=== PATIENT | female | born 2000 | race Two or more races ===

== ENCOUNTER 2024-12-31 16:52 | Emergency (ER) | payer MEDICAID, OTHER ==
[~2024-12-31] VITALS: Ht 149.9 cm; Wt 48.6 kg
--- NOTE | 2024-12-31 17:26 | ED.PDOC ---
GI ASSESSMENT HPI Comments This is a 24 year old female presenting to the ED with chief complaint of abdominal pain. Patient reports that she has been experiencing epigastric abdominal pain with associated nausea and vomiting for the past 2 days. Patient relays that she is currently 7 weeks . Patient states she is A1. Patient denies any hematemesis, fever, chills, dizziness, diarrhea, or vaginal bleeding. Chief Complaint: Abdominal Pain Time Seen by MD: 17:23 Reviewed Notes: Nurses Notes, Medications, Allergies Allergies: Coded Allergies: NO KNOWN ALLERGIES (Unverified , 12/31/24) Information Source: Patient Mode of Arrival: Ambulatory Timing: Days Duration: Since onset Prehospital treatment: None Quality: Aching Vomitus: Watery Stool: Normal Severity: Moderate Recent: None Recent Hx of: Current Pain Location: Epigastric Modifying Factors: Nothing Associated sign and symptoms: Nausea, Vomiting, Abdominal Pain Past Medical History PAST MEDICAL HISTORY: Denies Surgical History: Denies all surgeries SCIENCE TUTOR History: No Pertinent SCIENCE TUTOR History 3 Para 1 AB 1 Family History Family History: Reviewed,noncontributory to illness Social History Smoker: Non-Smoker Alcohol: Denies ETOH Use Drugs: Denies Drug Use Lives In: Home Constitutional: denies: chills, diaphoresis, fatigue, fever, malaise, sweats, weakness, others EENTM: denies: blurred vision, double vision, ear bleeding, ear discharge, ear drainage, ear pain, ear ringing, eye pain, eye redness, hearing loss, mouth pain, mouth swelling, nasal discharge, nose bleeding, nose congestion, nose pain, photophobia, tearing, throat pain, throat swelling, voice changes, others Respiratory: denies: cough, hemoptysis, orthopnea, SOB at rest, shortness of breath, SOB with excertion, stridor, wheezing, others Cardiovascular: denies: chest pain, dizzy spells, diaphoresis, Dyspnea on exertion, edema, irregular heart beat, left arm pain, lightheadedness, palpitations, PND, syncope, others Gastrointestinal: reports: abdominal pain, nausea, vomiting; denies: abdomen distended, blood streaked bowels, constipated, diarrhea, dysphagia, difficulty swallowing, hematemesis, melena, poor appetite, poor fluid intake, rectal bleeding, rectal pain, others Genitourinary: reports: ; denies: abnormal vagina bleeding, burning, dyspareunia, dysuria, flank pain, frequency, hematuria, incontinence, pain, vagina discharge, urgency, others Neurological: denies: dizziness, fainting, headache, left sided numbness, left sided weakness, numbness, paresthesia, pre-existing deficit, right sided numbness, right sided weakness, seizure, speech problems, tingling, tremors, weakness, others Musculoskeletal: denies: back pain, gout, joint pain, joint swelling, muscle pain, muscle stiffness, neck pain, others Integumetry: denies: bruises, change in color, change in hair/nails, dryness, laceration, lesions, lumps, rash, wounds, others Allergic/Immunocompromised: denies: Difficulty Healing, Frequent Infections, Hives, Itching, others Hematologic/Lymphatic: denies: anemia, blood clots, easy bleeding, easy bruising, swollen glands, others Endocrine: denies: excessive hunger, excessive sweating, excessive thirst, excessive urination, flushing, intolerance to cold, intolerance to heat, unexplained weight gain, unexplained weight loss, others Psychiatric: denies: anxiety, bipolar disorder, depression, hopeless, panic disorder, schizophrenia, sleepless, suicidal, others All Other Systems: Reviewed and Negative Physical Exam General Appearance: Mild Distress HEENT: Normal ENT Inspection, Pharynx Normal, TMs Normal Neck: Full Range of Motion, Non-Tender, Normal, Normal Inspection Respiratory: Chest Non-Tender, Lungs Clear, No Accessory Muscle Use, No Respiratory Distress, Normal Breath Sounds Cardiovascular: No Edema, No JVD, No Murmur, No Gallop, Normal Peripheral Pulses, Regular Rate/Rhythm Breast Exam: Deferred Gastrointestinal: No Organomegaly, Non Tender, No Pulsatile Mass, Normal Bowel Sounds, Soft Genitalia: Deferred Pelvic: Deferred Rectal: Deferred Extremities: No calf tenderness, Normal capillary refill, Normal inspection, Normal range of motion, Non-tender, No pedal edema Musculoskeletal : Apperance: Normal Neurologic: Alert, craft superintendent II-XII nml as Tested, No Motor Deficits, Normal Affect, Normal Mood, No Sensory Deficits Cerebellar Function: Normal Reflexes: Normal Skin: Dry, Normal Color, Warm Lymphatic: No Adenopathy Was a procedure done? Was a procedure done?: No GI differential Dx Differential Diagnosis: Gastritis/PUD, Gastroenteritis, Inflammatory BD, Pancreatitis, Electrolyte Imbalance, Food Poisoning X-Ray, Labs, Meds, VS Vital Signs Date Time Temp Pulse Resp B/P (MAP) Pulse Ox O2 Delivery O2 Flow Rate FiO2 12/31/24 19:28 95 17 99 Room Air 12/31/24 19:28 98.3 95 17 105/68 (80) 99 98.3 12/31/24 16:56 97.8 108 20 146/67 98 97.8 Lab Test 12/31/24 19:30 12/31/24 17:21 Range/Units Urine Color Yellow Yellow Urine Clarity Turbid H Clear Urine pH 5.5 5.0-9.0 Urine Specific Dane 1.034 1.001-1.035 Urine Protein 1+ H Negative Urine Ketones 4+ H Negative Urine Blood Negative Negative /uL Urine Nitrite Negative Negative Urine Bilirubin Negative Negative Urine Urobilinogen 3 H Negative mg/dL Urine Leukocyte Esterase Trace Negative /uL Urine RBC 2 0 - 4 /hpf Urine Microscopic WBC 12 H 0-5 /HPF Urine Squamous Epithelial Cells Mod <5 /hpf Urine Bacteria Few H None Seen /hpf Urine Mucus Few None Seen Urine Glucose Normal Normal mg/dL White Blood Count 7.3 4.4-10.8 10^3/uL Red Blood Count 4.97 4.0-5.20 10^6/uL Hemoglobin 14.4 12.2-16.2 g/dL Hematocrit 41.1 36.0-46.0 % Mean Corpuscular Volume 82.6 80.0-100.0 fL Mean Corpuscular Hemoglobin 29.0 28.0-32.0 pg Mean Corpuscular Hemoglobin Concent 35.1 32.0-36.0 g/dL Red Cell Distribution Width 13.2 11.8-14.3 % Platelet Count 266 140-450 10^3/uL Mean Platelet Volume 7.3 6.9-10.8 fL Neutrophils (%) (Auto) 77.7 37.0-80.0 % Lymphocytes (%) (Auto) 15.0 10.0-50.0 % Monocytes (%) (Auto) 6.7 0.0-12.0 % Eosinophils (%) (Auto) 0.2 0.0-7.0 % Basophils (%) (Auto) 0.4 0.0-2.0 % Neutrophils # (Auto) 5.7 1.6-8.6 10 ^3/uL Lymphocytes # (Auto) 1.1 0.4-5.4 10 ^3/uL Monocytes # (Auto) 0.5 0-1.3 10 ^3/uL Eosinophils # (Auto) 0 0-0.8 10 ^3/uL Basophils # (Auto) 0 0-0.2 10 ^3/uL Nucleated Red Blood Cells 0.0 % Sodium Level 137 136-145 mmol/L Potassium Level 3.9 3.5-5.1 mmol/L Chloride Level 102 98-107 mmol/L Carbon Dioxide Level 22 20-31 mmol/L Anion Gap 13 5-15 Blood Urea Nitrogen 7 L 9-23 mg/dL Creatinine 0.56 0.550-1.02 mg/dL Glomerular Filtration Rate Calc 131 >90 mL/min BUN/Creatinine Ratio 12.5 10.0-20.0 Serum Glucose 94 74-106 mg/dL Calcium Level 9.8 8.7-10.4 mg/dL Beta-Hydroxybutyric Acid 0.857 H < 0.4 mmol/L Beta HCG, Quantitative 678977.6 H 1.5-4.2 mIU/mL Current Medications Medications (Trade) Dose Ordered Sig/Manjula Route Start Time Stop Time Status Last Admin Metoclopramide HCl (Reglan Injection) 10 mg ONCE ONCE IV 12/31/24 17:15 12/31/24 17:16 DC 12/31/24 19:54 Pantoprazole Sodium (Protonix) 40 mg ONCE ONCE IV 12/31/24 17:15 12/31/24 17:16 DC 12/31/24 19:55 Sodium Chloride 1,000 ml @ 1,000 mls/hr Q1H ONCE IV 12/31/24 17:15 12/31/24 18:14 DC 12/31/24 19:28 The patient was given Reglan 10 mg IV push The patient was given Protonix 40 mg IV push The patient was given a 1 L bolus of normal saline The quantitative hCG is 118710 The CBC and chemistry panel is within normal limits The urine test is positive for UTI The patient is given a prescription of Reglan and Macrobid The patient will return to the emergency department's condition worsens. Images Reviewed?: Images reviewed and evaluated by me Time of 1ST Reevaluation: 20:54 Reevaluation 1ST: Unchanged Patient Education/Counseling: Diagnosis, Treatment, Prognosis, Need For Follow Up Family Education/Counseling: No Family Present SEPSIS Sepsis Screen Date sepsis recognized/suspect: Dec 31, 2024 Time Sepsis recognized/suspect: 1657 Recent Procedure: No On Antibiotic Therapy: No Respiratory Rate >20: No Heart Rate >90: Yes Temp<36 C (96.8 F) or >38.3 C: No SBP <90 or MAP <65 mmHG: No New Acute Mental Status Change: No Is the patient on CPAP, BIPAP,: No Physician Orders Ob Ultrasound Comp Less 14wks (12/31/24 17:13) Vital Signs Date Time Temp Pulse Resp B/P (MAP) Pulse Ox O2 Delivery O2 Flow Rate FiO2 12/31/24 19:28 95 17 99 Room Air 12/31/24 19:28 98.3 95 17 105/68 (80) 99 98.3 12/31/24 16:56 97.8 108 20 146/67 98 97.8 Laboratory Tests Test 12/31/24 17:21 White Blood Count 7.3 10^3/uL (4.4-10.8) Medications Medications Dose Ordered Sig/Manjula Route Start Time Stop Time Status Last Admin Dose Admin Metoclopramide HCl 10 mg ONCE ONCE IV 12/31/24 17:15 12/31/24 17:16 DC 12/31/24 19:54 Pantoprazole Sodium 40 mg ONCE ONCE IV 12/31/24 17:15 12/31/24 17:16 DC 12/31/24 19:55 Sodium Chloride 1,000 ml @ 1,000 mls/hr Q1H ONCE IV 12/31/24 17:15 12/31/24 18:14 DC 12/31/24 19:28 Departure 1 Departure Time of Disposition: 20:54 Impression: Primary Impression: Abdominal pain in Qualified Codes: O26.899 - Other specified related conditions, unspecified trimester; R10.9 - Unspecified abdominal pain Additional Impressions: Hyperemesis gravidarum UTI (urinary tract infection) Qualified Codes: N30.00 - Acute cystitis without hematuria Disposition: 01 HOME / SELF CARE / HOMELESS Condition: Fair Discharged With: Self Critical Care Note Critical Care Time?: No Stability Stability form required: No Heart Score Heart Score: Heart Score Response (Comments) Value History N/A 0 EKG N/A 0 Age N/A 0 Risk Factors N/A 0 Troponin N/A 0 Total 0 I personally scribed for FRANK LEE MD ([email or web address]) on 12/31/24 at 17:26. Electronically submitted by Ronnie Erickson ([email or web address]). FRANK LEE MD Dec 31, 2024 17:26
[2024-12-31 17:34] LABS: Hematocrit 41.1 % (36.0-46.0); Hemoglobin 14.4 g/dL (12.2-16.2); Mean Corpuscular Hemoglobin 29.0 pg (28.0-32.0); Mean Corpuscular Volume 82.6 fL (80.0-100.0); Nucleated Red Blood Cells % 0.0 %
[2024-12-31 17:49] LABS: Chloride 102 mmol/L (98-107); Potassium 3.9 mmol/L (3.5-5.1); Sodium 137 mmol/L (136-145)
[2024-12-31 17:50] LABS: Anion Gap 13 (5-15); Carbon Dioxide 22 mmol/L (20-31)
[2024-12-31 17:51] LABS: Calcium 9.8 mg/dL (8.7-10.4)
[2024-12-31 17:55] LABS: Glucose 94 mg/dL (74-106)
[2024-12-31 17:56] LABS: BUN/Creatinine Ratio 12.5 (10.0-20.0)
[2024-12-31 17:59] LABS: Blood Urea Nitrogen 7 mg/dL (9-23)
[2024-12-31 19:28] VITALS: BP 105/68; PULSE 95; RESP 17; TEMP 98.3; O2SAT 99
[2024-12-31] MEDS: SODIUM CHLORIDE 0.9% 1,000 ML IV ONE (19:28)
[2024-12-31] MEDS: METOCLOPRAMIDE HCL 5MG/ml INJ 2ml VIAL IV ONE (19:54)
[2024-12-31] MEDS: PANTOPRAZOLE 40 MG/10 ML VIAL INJ IV ONE (19:55)
--- NOTE | 2024-12-31 19:59 | DVH ---
INDICATION: pain TECHNIQUE: Multiple real-time grayscale transabdominal sonographic images along with color and duplex Doppler of the uterus and ovaries were obtained. COMPARISON: None FINDINGS: The uterus measures 9.8 x 7.3 x 8.3 cm. Gestational sac noted in the endometrial canal. The right ovary measures 3.5 x 1.8 x 2.8 cm. Volume of the right ovary is 8 cc. There is a 1.8 x 1.2 x 1.5 cm anechoic lesion in the right ovary consistent with a corpus luteal cyst. The left ovary not visualized Subsequent color and duplex Doppler interrogation of the right ovary demonstrated symmetric vascular flow to both ovaries, though this does not exclude the possibility of torsion due to the dual blood s upply. There is a gestational sac in the endometrial canal measuring 3.55 cm consistent with 8 weeks 5 days. Yolk sac is visualized. [place]-rump length measures 2.76 cm consistent with 9 weeks 4 days. Average gestational age is 9 weeks 1 day SOILA 4 08/31/2025. heart rate 171 beats per minute IMPRESSION: 1. Single live intrauterine with average gestational age of 9 weeks 1 day SOILA 2. Corpus luteal cyst in the right ovary. 3. Left ovary not visualized. 4. heart rate 171 beats per minute. 5. Questionable small subchorionic bleed. Measures 2.3 x 1 x 1.4 cm
[2024-12-31 20:06] LABS: Urine Protein, UAD 1+ (Negative)
[2024-12-31] MEDS ORDERED: NITR-87 PO (20:57)
[2025-01-10] MEDS ORDERED: PANT40T PO (11:48)
[2025-01-10] MEDS ORDERED: ZOFR4T PO (11:48)
[2025-01-10] MEDS ORDERED: CEPH500C PO (11:48)
== END 2024-12-31 21:11 | disposition home or self-care (01) ==
LOC: ER 16:52
DX: O21.0 Mild hyperemesis gravidarum (principal); O00.80 Other ectopic pregnancy without intrauterine pregnancy; O23.41 Unspecified infection of urinary tract in pregnancy, first trimester; N39.0 Urinary tract infection, site not specified; Z3A.09 9 weeks gestation of pregnancy
CPT/HCPCS: 36415; 76801; 80048; 81001; 82010; 84702; 85025; 96361; 96374; 96375; 99285; J2470; J2765; J7030

== ENCOUNTER 2025-01-07 21:29 | Inpatient (IN) | payer MEDICAID ==
[~2025-01-07] VITALS: Ht 149.9 cm; Wt 50.7 kg
[~2025-01-07 21:29] MED LIST: NITR-87 PO
--- NOTE | 2025-01-07 22:30 | ED.PDOC ---
SEED ANALYSIS LABORATORY ASSISTANT HPI Comments 24-year-old female who came to ER due to nausea and vomiting. Patient is a , approximately 10 weeks . For the past 2 days, patient has been unable to tolerate any oral intake, bouts of nausea and vomiting, associated with chest discomfort, shortness a breath, back pains, and palpitations. Denies any vaginal bleeding. REVIEW OF SYSTEMS: General: No fever, no chills, or fatigue HEENT: No sore throat, no earache, no congestion, no neck pain. Cardiac: (+) chest pain. No palpitations. Lungs: (+) shortness of breath, no cough. GI: (+) nausea, (+) vomiting, no diarrhea, no constipation, no abdominal pain : No dysuria, frequency, or urgency. No hematuria. Musculoskeletal: No joint pain , no joint swelling, no extremity edema. Skin: No rash, no itching. Neuro: No headache, no dizziness, no weakness EXAM: General: Awake, alert and oriented. No acute distress. Skin: Skin in warm, dry and intact. Appropriate color for ethnicity. HEENT: The head is normocephalic and atraumatic. Conjunctivae are clear without exudates or hemorrhage. Sclera is non-icteric. EOM are intact. No signs of nystagmus. Eyelids are normal in appearance without swelling or lesions. Oral mucosa is pink and moist Neck: The neck is supple with normal range of motion. No JVD. Cardiac: Heart rate and rhythm are normal. No murmurs, gallops, or rubs are auscultated. Respiratory: No signs of respiratory distress. Lung sounds are clear in all lobes bilaterally without rales, rhonchi, or wheezes. Abdominal: Abdomen is soft, positive epigastric-tenderness without distention. Bowel sounds are present and normoactive in all four quadrants. Extremities: Upper and lower extremities are atraumatic in appearance without deformity or edema. Neurological: The patient is awake, alert and oriented to person, place, and time with normal speech. Speech is clear. There is no facial asymmetry. Psychiatric: Appropriate mood and affect. 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 Was a procedure done?: No Differential Diagnosis (SWING FRAME GRINDER OPERATOR) Vaginal Bleeding: - Threatened, UTI, Other (Hyperemesis gravidarum) Vaginal Discharge: , UTI, Other (Pancreatitis, cholecystitis, pneumonia, acute coronary syndrome, pulmonary embolism, hyperemesis gravidarum, urinary tract infection, electrolyte imbalance, thyroid disorder, other) X-Ray, Labs, Meds, VS Vital Signs Date Time Temp Pulse Resp B/P (MAP) Pulse Ox O2 Delivery O2 Flow Rate FiO2 01/08/25 01:58 98.8 91 20 125/70 (88) 98 98.8 01/08/25 01:37 87 01/08/25 00:39 83 01/07/25 21:32 98.5 133 16 139/81 95 98.5 Lab Test 01/07/25 22:36 Range/Units White Blood Count 9.3 4.4-10.8 10^3/uL Red Blood Count 5.24 H 4.0-5.20 10^6/uL Hemoglobin 15.1 12.2-16.2 g/dL Hematocrit 43.4 36.0-46.0 % Mean Corpuscular Volume 82.9 80.0-100.0 fL Mean Corpuscular Hemoglobin 28.9 28.0-32.0 pg Mean Corpuscular Hemoglobin Concent 34.9 32.0-36.0 g/dL Red Cell Distribution Width 13.3 11.8-14.3 % Platelet Count 283 140-450 10^3/uL Mean Platelet Volume 7.4 6.9-10.8 fL Neutrophils (%) (Auto) 87.6 H 37.0-80.0 % Lymphocytes (%) (Auto) 8.0 L 10.0-50.0 % Monocytes (%) (Auto) 4.0 0.0-12.0 % Eosinophils (%) (Auto) 0.1 0.0-7.0 % Basophils (%) (Auto) 0.3 0.0-2.0 % Neutrophils # (Auto) 8.2 1.6-8.6 10 ^3/uL Lymphocytes # (Auto) 0.7 0.4-5.4 10 ^3/uL Monocytes # (Auto) 0.4 0-1.3 10 ^3/uL Eosinophils # (Auto) 0 0-0.8 10 ^3/uL Basophils # (Auto) 0 0-0.2 10 ^3/uL Nucleated Red Blood Cells 0.0 % Sodium Level 137 136-145 mmol/L Potassium Level 3.9 3.5-5.1 mmol/L Chloride Level 104 98-107 mmol/L Carbon Dioxide Level 19 L 20-31 mmol/L Anion Gap 14 5-15 Blood Urea Nitrogen 8 L 9-23 mg/dL Creatinine 0.61 0.550-1.02 mg/dL Glomerular Filtration Rate Calc 128 >90 mL/min BUN/Creatinine Ratio 13.1 10.0-20.0 Serum Glucose 96 74-106 mg/dL Calcium Level 10.1 8.7-10.4 mg/dL Troponin I High Sensitivity < 3 L </=34 ng/L Lipase 53 12-53 U/L Beta HCG, Quantitative 62731.4 H 1.5-4.2 mIU/mL Current Medications Medications (Trade) Dose Ordered Sig/Manjula Route Start Time Stop Time Status Last Admin Pyridoxine HCl (Vitamin B-6 Tablet) 50 mg ONCE ONCE PO 01/07/25 22:30 01/07/25 22:31 DC 01/08/25 00:57 Sodium Chloride 1,000 ml @ 1,000 mls/hr Q1H ONCE IV 01/07/25 22:30 01/07/25 23:29 DC 01/08/25 00:53 Acetaminophen (Tylenol Tablet Or Capsule) 1,000 mg ONCE ONCE PO 01/08/25 00:45 01/08/25 00:46 DC 01/08/25 00:58 Ondansetron HCl (Zofran) 4 mg ONCE ONCE IV 01/08/25 02:45 01/08/25 02:46 DC 01/08/25 03:43 OB ULTRASOUND <14 WEEKS: HISTORY: Abdominal pain, TECHNIQUE: Multiple real-time grayscale sonographic images of the pelvis with duplex doppler color flow, spectral and M-mode analysis. COMPARISON: US OB ULTRASOUND COMP LESS 14WKS on DOS: 12/31/24 FINDINGS: The uterus measures 10.5 X 8.6 X 7.7 cm The cervix is unremarkable. Right ovary measures 3.2 X 1.7 X 2.1 cm with normal Doppler color flow. Left ovary measures 4.0 X 1.9 X 2.5 cm with normal Doppler color flow. IUP single fetus at 10 weeks 0 days average ultrasound age based on mean crown- rump length of 3.56 cm and gestational sac size of 4.12 cm heart rate detected at 165 beats per minute. Yolk sac remarkable. Amniotic fluid within normal limits Mervat-gestational space: No subchronic hemorrhage IMPRESSION: IUP single fetus 10 weeks 0 days AUA corresponding to an SOILA of 03/24/2024. No acute abnormality detected. Time of 1ST Reevaluation: 22:22 Reevaluation 1ST: Unchanged Patient Education/Counseling: Need For Follow Up Family Education/Counseling: Need For Follow Up Departure 1 Departure Time of Disposition: 02:44 Impression: Primary Impression: Nausea and vomiting during Additional Impression: Chest pain Disposition: ADMITTED INPATIENT Condition: Stable Comments 24-year-old female ongoing nausea and vomiting and continued chest pain. Patient admitted to hospitalist service for further treatment, evaluation and monitoring. Extensive evaluation was performed in attempt to identify or rule out: (See dif ferential diagnosis section) The following tests were ordered, and results were reviewed by me and discussed with patient: (See diagnostic results section) The following test were independently interpreted by me: EKG Decision regarding hospitalization or escalation of hospital level of care: Risk and benefits of admission for further treatment of patient's condition was considered. Due to patient's current clinical condition, high risk of decline and poor outcome if discharged and need for further inpatient management and monitoring, patient will be admitted to the hospital. Discussed with patient. Critical Care Note Critical Care Time?: No Stability Stability form required: No Heart Score Heart Score: Heart Score Response (Comments) Value History N/A 0 EKG N/A 0 Age N/A 0 Risk Factors N/A 0 Troponin N/A 0 Total 0 I personally scribed for NIKOLAY GRIFFITH MD ([email or web address]) on 01/07/25 at 22:30. Electronically submitted by Paulo Wilson ([facility] I personally scribed for NIKOLAY GRIFFITH MD ([email or web address]) on 01/07/25 at 23:37. Electronically submitted by Paulo Wilson ([email or web address] I personally scribed for NIKOLAY GRIFFITH MD ([email or web address]) on 01/08/25 at 02:50. Electronically submitted by Paulo Wilson ([facility] NIKOLAY GRIFFITH MD Jan 07, 2025 22:30
[2025-01-07 22:46] LABS: Hematocrit 43.4 % (36.0-46.0); Hemoglobin 15.1 g/dL (12.2-16.2); Mean Corpuscular Hemoglobin 28.9 pg (28.0-32.0); Mean Corpuscular Volume 82.9 fL (80.0-100.0); Nucleated Red Blood Cells % 0.0 %
[2025-01-07 22:56] LABS: Anion Gap 14 (5-15); Chloride 104 mmol/L (98-107); Potassium 3.9 mmol/L (3.5-5.1); Sodium 137 mmol/L (136-145)
[2025-01-07 22:57] LABS: Calcium 10.1 mg/dL (8.7-10.4)
[2025-01-07 23:02] LABS: BUN/Creatinine Ratio 13.1 (10.0-20.0); Glucose 96 mg/dL (74-106); Lipase 53 U/L (12-53)
[2025-01-07 23:09] LABS: Blood Urea Nitrogen 8 mg/dL (9-23); Carbon Dioxide 19 mmol/L (20-31)
--- NOTE | 2025-01-07 23:19 | DVH ---
OB ULTRASOUND <14 WEEKS: HISTORY: Abdominal pain, TECHNIQUE: Multiple real-time grayscale sonographic images of the pelvis with duplex doppler color fl ow, spectral and M-mode analysis. COMPARISON: US OB ULTRASOUND COMP LESS 14WKS on DOS: 12/31/24 FINDINGS: The uterus measures 10.5 X 8.6 X 7.7 cm The cervix is unremarkable. Right ovary measures 3.2 X 1.7 X 2.1 cm with normal Doppler color flow. Left ovary measures 4.0 X 1.9 X 2.5 cm with normal Doppler color flow. IUP single fetus at 10 weeks 0 days average ultrasound age based on mean crown-rump length of 3.56 c m and gestational sac size of 4.12 cm heart rate detected at 165 beats per minute. Yolk sac remarkable. Amniotic fluid within normal limits Mervat-gestational space: No subchronic hemorrhage IMPRESSION: IUP single fetus 10 weeks 0 days AUA corresponding to an SOILA of 03/24/2024. No acute abnormality detected.
[2025-01-08] VITALS (10 sets, daily range): BP systolic 101–171; BP diastolic 56–87; PULSE 58–90; RESP 14–19; TEMP 97.3–98.4; O2SAT 93–99
--- NOTE | 2025-01-08 00:48 | ECG ---
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
[2025-01-08] MEDS: SODIUM CHLORIDE 0.9% 1,000 ML IV ONE ×2 (00:53→03:43)
[2025-01-08] MEDS: PYRIDOXINE HCL 50 MG TAB PO ONE (00:57)
[2025-01-08] MEDS: ACETAMINOPHEN 500 MG TAB or CAP PO ONE (00:58)
--- NOTE | 2025-01-08 03:26 | DVHHPRES ---
History of Present Illness Resident Creating Document: HUONG LOMAS History of Present Illness Marya Balderas is a 24-year-old female patient who presents to the ED with chief complaint of dyspnea and retrosternal pressure-like chest pain, associated with chills which started approximately 48 hours before her admission. Patient says that these symptoms were triggered only while she presents nonbloody emesis. She also describes chest pain that worsens with deep breaths and with superficial palpation. Patient is 10 weeks , has been experiencing unintentional weight loss and she believes is probably secondary to incoherent possible vomiting and reduced appetite (she went from 117 lb 204 lb in four weeks). She also complains of migraine and palpitation during these episodes. Due to progressive worsening of symptoms, patient decides to visit ER for further evaluation. Denies any other associated symptoms. 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 Normal cycles. Dr. Moon is her communications operator doctor Surgical history: Denies Family history: Grandmother had breast cancer Social history: Lives in [place] with family (next of kin is boyfriend). She occasionally smokes marijuana, but has not been smoking since patient has be en . Denies current tobacco, alcohol and other drug abuse Allergies: Denies Home medication: Tylenol Patient seen and examined at bedside. Currently still not tolerating oral diet (she could not take Tylenol or vitamin supplementation). Patient will be admitted for further management. Past Medical History Per HPI Past Surgical History Per HPI Family History Per HPI Past Social History Per HPI Review of Systems Review of Systems Per HPI Allergies: Coded Allergies: NO KNOWN ALLERGIES (Unverified , 12/31/24) Exam Vital Signs Vital Signs Date Time Temp Pulse Resp B/P (MAP) Pulse Ox O2 Delivery O2 Flow Rate FiO2 01/08/25 01:58 98.8 91 20 125/70 (88) 98 98.8 Exam Patient lying in bed, in no acute distress General: Lucid, afebrile, mucosae are moist Cardiovascular: Normal S1 and S2. No murmurs, gallops or rubs Respiratory: Normal ventilation mechanics. Clear lung sounds on auscultation Abdomen: Soft, mild tenderness on deep palpation right upper quadrant, rest of abdomen nontender, no organomegaly, normal bowel sounds MSK/skin: Mobilizes 4 limbs. Skin is dry and warm Neurological: Oriented in 3 spheres. No motor no sensitive deficits. Pupils are isocoric and reactive Labs/Xrays Labs Test 01/08/25 02:55 01/07/25 22:36 Range/Units White Blood Count 9.3 4.4-10.8 10^3/uL Red Blood Count 5.24 H 4.0-5.20 10^6/uL Hemoglobin 15.1 12.2-16.2 g/dL Hematocrit 43.4 36.0-46.0 % Mean Corpuscular Volume 82.9 80.0-100.0 fL Mean Corpuscular Hemoglobin 28.9 28.0-32.0 pg Mean Corpuscular Hemoglobin Concent 34.9 32.0-36.0 g/dL Red Cell Distribution Width 13.3 11.8-14.3 % Platelet Count 283 140-450 10^3/uL Mean Platelet Volume 7.4 6.9-10.8 fL Neutrophils (%) (Auto) 87.6 H 37.0-80.0 % Lymphocytes (%) (Auto) 8.0 L 10.0-50.0 % Monocytes (%) (Auto) 4.0 0.0-12.0 % Eosinophils (%) (Auto) 0.1 0.0-7.0 % Basophils (%) (Auto) 0.3 0.0-2.0 % Neutrophils # (Auto) 8.2 1.6-8.6 10 ^3/uL Lymphocytes # (Auto) 0.7 0.4-5.4 10 ^3/uL Monocytes # (Auto) 0.4 0-1.3 10 ^3/uL Eosinophils # (Auto) 0 0-0.8 10 ^3/uL Basophils # (Auto) 0 0-0.2 10 ^3/uL Nucleated Red Blood Cells 0.0 % Sodium Level 137 136-145 mmol/L Potassium Level 3.9 3.5-5.1 mmol/L Chloride Level 104 98-107 mmol/L Carbon Dioxide Level 19 L 20-31 mmol/L Anion Gap 14 5-15 Blood Urea Nitrogen 8 L 9-23 mg/dL Creatinine 0.61 0.550-1.02 mg/dL Glomerular Filtration Rate Calc 128 >90 mL/min BUN/Creatinine Ratio 13.1 10.0-20.0 Serum Glucose 96 74-106 mg/dL Calcium Level 10.1 8.7-10.4 mg/dL Lipase 53 12-53 U/L Beta HCG, Quantitative 48797.4 H 1.5-4.2 mIU/mL SEPSIS Sepsis Screen Date sepsis recognized/suspect: Jan 07, 2025 Time Sepsis recognized/suspect: 2134 Recent Procedure: No On Antibiotic Therapy: No Respiratory Rate >20: No Heart Rate >90: Yes Temp<36 C (96.8 F) or >38.3 C: No SBP <90 or MAP <65 mmHG: No New Acute Mental Status Change: No Is the patient on CPAP, BIPAP,: No Physician Orders Ob Ultrasound Comp Less 14wks (01/07/25 22:28) Electrocardigram (01/08/25 01:46) Electrocardigram (01/08/25 03:46) Troponin-I Hs (01/08/25 02:46) Urinalysis (01/08/25 02:46) Admit (01/08/25 02:52) Code Status (01/08/25 02:52) Ondansetron Hcl (Zofran) (01/08/25 03:00) Npo (Nothing By Mouth) Diet (01/08/25 Breakfast) Echo 2d Mode Cardiac Dop (01/08/25 02:52) Oxygen By Nasal Cannula (01/08/25 02:52) Stat Ekg For Chest Pain (01/08/25 02:52) Notify Md Of Changes From Base (01/08/25 02:52) Digital Media Representative For 24 Hours (01/08/25 02:52) Emergency Dysrhythmia Protocol (01/08/25 02:52) Rhythm Strips Once Every Shift (01/08/25 02:52) Sodium Chloride 0.9% (01/08/25 03:00) Pyridoxine Hcl Tablet (Vitamin B-6 Table (01/08/25 10:00) NS (01/08/25 03:00) Vital Signs Date Time Temp Pulse Resp B/P (MAP) Pulse Ox O2 Delivery O2 Flow Rate FiO2 01/08/25 01:58 98.8 91 20 125/70 (88) 98 98.8 01/08/25 01:37 87 01/08/25 00:39 83 01/07/25 21:32 98.5 133 16 139/81 95 98.5 Laboratory Tests Test 01/07/25 22:36 White Blood Count 9.3 10^3/uL (4.4-10.8) Medications Medications Dose Ordered Sig/Manjula Route Start Time Stop Time Status Last Admin Dose Admin Acetaminophen 1,000 mg ONCE ONCE PO 01/08/25 00:45 01/08/25 00:46 DC 01/08/25 00:58 1,000 MG Pyridoxine HCl 50 mg ONCE ONCE PO 01/07/25 22:30 01/07/25 22:31 DC 01/08/25 00:57 50 MG Sodium Chloride 1,000 ml @ 1,000 mls/hr Q1H ONCE IV 01/07/25 22:30 01/07/25 23:29 DC 01/08/25 00:53 1,000 MLS/HR Assessment/Plan Assessment/Plan Hyperemesis gravidarum Intrauterine (10 weeks of gestation) Dehydration Completed pelvic ultrasound which shows intrauterine of a single fetus is approximately 10 weeks of gestation. No acute abnormalities detected Patient currently is NPO Indicated IV fluids Avoid teratogenic medication and radiation Monitor electrolyte alteration. Ordered magnesium and phosphorus (pending) Rule out cholecystitis/appendicitis Ordered complete abdomen ultrasound Probable Costochondritis Completed EKG which showed sinus tachycardia with no ST-elevation. Troponins x2 negative. Chest pain is noncardiac (reproduces with palpation and worsens with breathing) Ordered echocardiogram to evaluate LV function and to rule out RV strain Recommend Tylenol once patient tolerates oral intake Goals of care discussed with patient for over18 minutes: Full code status Discussed case with Dr. Luz, patient and nurses: Patient was admitted to telemetry due to incoercible emesis with unintentional weight loss of13 lb in the past four weeks during . Patient is kept NPO and was given IV fluids. We will advance diet as tolerated. Ordered abdominal ultrasound to rule out acute causes of nausea and vomiting (cholecystitis and appendicitis). Plan discussed with: Patient, Other (Nurses) My Orders Orders - HUONG LOMAS RESIDENT Procedure Category Date Status Time Admit ADMIT 01/08/25 Transmitted 02:52 Code Status CODE 01/08/25 Transmitted 02:52 Ondansetron Hcl PHA 01/08/25 Logged (Zofran) 03:00 Npo (Nothing By DIET 01/08/25 Transmitted Mouth) Diet Breakfast Echo 2d Mode Cardiac US 01/08/25 Logged DOP 02:52 Oxygen By Nasal RT 01/08/25 Transmitted Cannula 02:52 Stat Ekg For Chest [facility] 01/08/25 In Process Pain 02:52 Notify Of Changes [facility] 01/08/25 In Process From Base 02:52 Digital Media Representative For [facility] 01/08/25 In Process 24 Hours 02:52 Emergency Dysrhythmia [facility] 01/08/25 In Process Protocol 02:52 Rhythm Strips Once [facility] 01/08/25 In Process Every Shift 02:52 Sodium Chloride 0.9% [facility] 01/08/25 Logged 03:00 Pyridoxine Hcl Tablet [facility] 01/08/25 Logged (Vitamin B-6 Table 10:00 NS [facility] 01/08/25 Verified 03:00 Date of Service: Jan 08, 2025 Billing Provider: KENNETH CARLOS MD Common Visit Codes: [id number] INP/OBS CARE (HIGH) Secondary Visit Codes: [id number] CARE PLAN 30 MINUTES HUONG LOMAS RESIDENT Jan 08, 2025 03:26
--- NOTE | 2025-01-08 03:31 | ECG ---
[facility] Test Date: 2025-01-08 Test Time: 01:34:54 Pat Name: KATHIE SENA Department: Room: 0280T Gender: F Nutritional Assistant: LINDA : 2000 Requested By: NIKOLAY GRIFFITH Order Number: [id number] Reading MD: Jaime Fernandez Measurements Intervals [place] Rate: 87 P: 63 OK: 131 QRS: 94 QRSD: 84 T: 60 QT: 345 QTc: 415 Interpretive Statements Sinus rhythm Borderline right axis deviation Minimal ST depression, inferior leads Electronically Signed On 01-13-2025 21:55:38 PDT by Jaime Fernandez Please click the below link to view image of tracing.
[2025-01-08] MEDS: ONDANSETRON HCL 4 MG/2 ML VIAL IV ONE (03:43)
--- NOTE | 2025-01-08 04:42 | ECG ---
[facility] Test Date: 2025-01-08 Test Time: 03:36:03 Pat Name: KATHIE SENA Department: Room: 0280T Gender: F Supervisor Cooler Service: DIEUDONNE : 2000 Requested By: NIKOLAY GRIFFITH Order Number: [id number] Reading MD: Jaime Fernandez Measurements Intervals [place] Rate: 80 P: 0 MN: 122 QRS: 91 QRSD: 80 T: 68 QT: 355 QTc: 410 Interpretive Statements Sinus rhythm Borderline right axis deviation Electronically Signed On 01-13-2025 21:57:01 PDT by Jaime Fernandez Please click the below link to view image of tracing.
[2025-01-08 05:03] LABS: Hematocrit 37.3 % (36.0-46.0); Hemoglobin 13.1 g/dL (12.2-16.2); Mean Corpuscular Hemoglobin 29.4 pg (28.0-32.0); Mean Corpuscular Volume 84.0 fL (80.0-100.0); Nucleated Red Blood Cells % 0.0 %
[2025-01-08] MEDS: SODIUM CHLORIDE 0.9% 1,000 ML IV SCH (05:10)
[2025-01-08 05:28] LABS: Albumin 4.2 g/dL (3.2-4.8); Alkaline Phosphatase 55 U/L (46-116); Anion Gap 14 (5-15); BUN/Creatinine Ratio 18.2 (10.0-20.0); Glucose 83 mg/dL (74-106); Magnesium 1.8 mg/dL (1.6-2.6); Potassium 4.2 mmol/L (3.5-5.1); Sodium 140 mmol/L (136-145); Total Protein 6.6 g/dL (5.7-8.2); Triglycerides 76 mg/dL (< 150)
[2025-01-08 05:29] LABS: Bilirubin, Total 1.1 mg/dL (0.2-1.0); Cholesterol 137 mg/dL (< 200); HDL Cholesterol 46 mg/dL (40-59)
[2025-01-08 05:31] LABS: Alanine Aminotransferase 77 U/L (7-40); Blood Urea Nitrogen 8 mg/dL (9-23); Calcium 8.2 mg/dL (8.7-10.4); Carbon Dioxide 17 mmol/L (20-31); Chloride 109 mmol/L (98-107)
[2025-01-08] MEDS: FAMOTIDINE (10MG/ML) 2ML VL IV ONE (05:45)
[2025-01-08 08:31] LABS: Urine Protein, UAD Negative (Negative)
[2025-01-08 08:35] LABS: Cannabinoid Screen, Urine Neg (NEGATIVE)
[2025-01-08 08:36] LABS: Amphetamine Screen, Urine Neg (NEGATIVE); Barbiturate Scree,Urine Neg (NEGATIVE); Benzodiazephine Screen, Urine Neg (NEGATIVE); Cocaine Screen, Urine Neg (NEGATIVE); Opiate Scree,Urine Neg (NEGATIVE); Phencyclidine Screen, Urine Neg (NEGATIVE)
[2025-01-08] MEDS: PYRIDOXINE HCL 50 MG TAB PO SCH (10:50)
--- NOTE | 2025-01-08 10:56 | DVH ---
Right lower quadrant ultrasound INDICATION: R/O APPENDICITIS Technique: 2-D real-time ultrasound was performed with axial and sagittal images submitted for evalu ation with graded compression. FINDINGS: Tubular structure in the right lower quadrant is 13.5 cm in length and is slightly ole sible. Increased vascular flow is seen along the periphery of this structure. Patient stated there is slight localized tenderness over this region with transducer pressure IMPRESSION: 1. Findings suspicious for mild or early acute appendicitis. Follow-up with contrast CT recommended t o confirm diagnosis
--- NOTE | 2025-01-08 11:12 | DVH ---
Ultrasound abdomen INDICATION: Questionable cholecystitis Technique: 2-D real-time ultrasound was performed with axial and sagittal images submitted for evalu ation. FINDINGS:Liver and spleen are normal in size without focal mass. No gallstones. There may be some sl udge in the gallbladder. There is slight gallbladder wall thickening. Negative sonographic bautista rep orted. No biliary dilatation. Common duct measures 4 mm. Kidneys are normal in size without mass ston e or hydronephrosis. Limited visualization of the pancreas due to overlying bowel gas. No free fluid. No abnormalities of the aorta or inferior vena cava.. IMPRESSION: 1. Slight thickening of the gallbladder wall. Whether this is due to acalculous cholecystitis or hyp oalbuminemia is uncertain. May consider nuclear medicine HIDA scan
[2025-01-08] MEDS: ONDANSETRON HCL 4 MG/2 ML VIAL IV PRN (12:48)
--- NOTE | 2025-01-08 12:57 | DVHSR ---
APPROVED REPORT EXAM: Two-dimensional and M-mode echocardiogram with Doppler and color Doppler. Blood Pressure: 101/56 mmHg INDICATION Chest Pain RISK FACTORS Height: 4'11", Weight: 100 DIMENSIONS LVDd4.3 (3.8-5.7cm)LA (2D)3.3 (1.9-4.0cm)Aortic Root2.6 (2.0-3.7cm) LVDs2.8 (2.5-4.0cm)LA (MM) (1.9-4.0cm)Aortic Cusp Exc1.9 (1.5-2.0cm) EF (%) 60.0 (55-70%)Rt. Atrium3.0 (1.9-4.0cm)Asc. Aorta cm IVSd0.7 (0.7-1.1cm)RV (D)3.0 (1.8-2.4cm) PWd0.6 (0.7-1.1cm) Mitral Valve MitralMitral Stenosis E wave0.99m/sMV Mean GR.mmHg A wave0.50m/sMV Peak GR.mmHg E/A ratio2.02D MVAcm2 DECEL [id number] 1/2 Tim[place] Aortic Valve Aortic ValveAortic Stenosis V10.89m/Gale Mean GR.3mmHg V21.25m/Gale Peak GR.6mmHg LVOT Diameter1.9 (1.8-2.4cm)Doppler AVA2.02cm2 Pulmonic Valve V20.87m/s Tricuspid Valve TR Velocity2.83m/s [id number] Conclusion lvef 65% normal rv function normal atria no severe valve abnormalities noted
--- NOTE | 2025-01-08 13:56 | DVHPN2 ---
Reviewed: Care Plan, H&P, Labs, Medications, Previous Orders, Radiology Changes from previous H/P or p: No Changes Objective Vitals Vital Signs Date Time Temp Pulse Resp B/P (MAP) Pulse Ox O2 Delivery O2 Flow Rate FiO2 01/08/25 12:38 97.3 58 16 115/59 (77) 93 97.3 01/08/25 08:00 Room Air* 0 21 Medications Current Medications Medications Dose Ordered Sig/Manjula Route Start Time Stop Time Status Last Admin Dose Admin Ondansetron HCl 4 mg Q4HP PRN IV 01/08/25 03:00 01/08/25 12:48 4 MG Sodium Chloride 1,000 ml @ 60 mls/hr [id number] IV 01/08/25 03:00 01/08/25 05:10 60 MLS/HR Pyridoxine HCl 100 mg DAILY PO 01/08/25 10:00 01/08/25 10:50 100 MG Laboratory Results Laboratory Tests 01/08/25 04:33 Chemistry Test 01/07/25 22:36 01/08/25 04:33 Calcium Level 10.1 mg/dL (8.7-10.4) 8.2 mg/dL (8.7-10.4) L Albumin 4.2 g/dL (3.2-4.8) Magnesium Level 1.8 mg/dL (1.6-2.6) Phosphorus Level 3.5 mg/dL (2.4-5.1) Total Protein 6.6 g/dL (5.7-8.2) Lipid panel Test 01/07/25 22:36 01/08/25 04:33 Lipase 53 U/L (12-53) Cholesterol Level 137 mg/dL (< 200) HDL Cholesterol 46 mg/dL (40-59) Triglycerides Level 76 mg/dL (< 150) Cardiac Markers Test 01/08/25 04:33 B-Type Natriuretic Peptide 8.64 pg/mL (0-100) LFT Test 01/08/25 04:33 Alanine Aminotransferase (ALT) 77 U/L (7-40) H Alkaline Phosphatase 55 U/L (46-116) Aspartate Amino Transferase (AST) 34 U/L (13-40) Total Bilirubin 1.1 mg/dL (0.2-1.0) H HgA1c, TSH Test 01/08/25 04:33 Hemoglobin A1c 5.0 % A1C (<5.7) Thyroid Stimulating Hormone (TSH) 0.42 uIU/mL (0.55-4.78) L Urinalysis Test 01/08/25 07:40 Urine Color Yellow (Yellow) Urine Clarity Clear (Clear) Urine pH 5.5 (5.0-9.0) Urine Specific [place] 1.023 (1.001-1.035) Urine Protein Negative (Negative) Urine Ketones 4+ (Negative) H Urine Blood Negative /uL (Negative) Urine Nitrite Negative (Negative) Urine Bilirubin Negative (Negative) Urine Urobilinogen 2 mg/dL (Negative) H Urine Leukocyte Esterase Negative /uL (Negative) Urine RBC None seen /hpf (0 - 4) Urine Microscopic WBC 2 /HPF (0-5) Urine Squamous Epithelial Cells Few /hpf (<5) Urine Bacteria Few /hpf (None Seen) H Urine Glucose Normal mg/dL (Normal) Labs and/or images reviewed: Labs reviewed by me, Image(s) reviewed by me Assessment/Plan Assessment/Plan Hyperemesis gravidarum consult for top taper machine Dr. Del Cid Intrauterine (10 weeks of gestation) Dehydration : IV fluids Possible acute appendicitis: Consult for surgeon Probable Costochondritis Plan discussed with: Patient Date of Service: Jan 08, 2025 Billing Provider: TRISTIN ALEXANDER MD Common Visit Codes: [id number] INP/OBS CARE(HIGH) TRISTIN ALEXANDER MD Jan 08, 2025 13:56
[2025-01-08] MEDS: PIPERACILLIN-TAZOB 3.375GM 100 ML IV SCH (16:08)
[2025-01-08] MEDS: PANTOPRAZOLE 40 MG/10 ML VIAL INJ IV ONE (16:08)
--- NOTE | 2025-01-08 16:13 | DVHINCON2 ---
Date of service: Jan 08, 2025 Referring Physician HOSPITALIST Reason for Consultation HYPEREMESIS History of Present Illness PT IS ADMITTED FOR N,V,CP,ABD PAIN AND SHE IS 10 WKS PREG WITH EDC OF 03/24/25 SHE DENIES BLEEDING OR VAG DC.APPENDIX SONO WAS ORDERED WHICH IS SUSPICIOUS FOR MILDLY INFLAMMED APPY.GENERAL SURGERY CONSULT WAS ORDERED Past Medical History NONE Past Surgical History NONE Family History NONE Social History Patient Family History: FH: breast cancer GRANDMOTHER Allergies: Coded Allergies: NO KNOWN ALLERGIES (Unverified , 12/31/24) Home Meds Active Scripts Nitrofurantoin Monohydrate Mac (Macrobid) 100 Mg Cap, 100 MG PO BID for 5 Days, #10 CAP Prov:FRANK LEE MD 12/31/24 Current Medications Current Medications Medications (Trade) Dose Ordered Sig/Manjula Route PRN Reason Start Time Stop Time Status Last Admin Ondansetron HCl (Zofran) 4 mg Q4HP PRN IV NAUSEA / VOMITING 01/08/25 03:00 01/08/25 12:48 Sodium Chloride 1,000 ml @ 60 mls/hr [id number] IV 01/08/25 03:00 01/08/25 05:10 Pyridoxine HCl (Vitamin B-6 Tablet) 100 mg DAILY PO 01/08/25 10:00 01/08/25 10:50 Ceftriaxone Sodium 50 ml @ 100 mls/hr DAILY@09 IV 01/09/25 09:00 01/08/25 15:54 DC Pantoprazole Sodium (Protonix) 40 mg BID IV 01/08/25 22:00 Piperacillin Sod/ Tazobactam Sod 100 ml @ 25 mls/hr Q8H IV 01/08/25 16:00 Review of Systems Constitutional: no fever, chill, weight loss HEENT: no eye pain, no hearing loss, no oral lesion, no scleral icterus Heart: POS chest pain, no chest pressure Lung: no cough, no dyspnea with exertion Abdomen: see HPI : no pain with urination, normal appearing urine Musculoskeletal: no joint pain, no muscle pain Neurological: no seizure, no loss of sensation, no weakness in extremities Pysch: no depression, no anxiety Derm: no rash, no jaundice Vital Signs Vital Signs Date Time Temp Pulse Resp B/P (MAP) Pulse Ox O2 Delivery O2 Flow Rate FiO2 01/08/25 12:38 97.3 58 16 115/59 (77) 93 97.3 01/08/25 08:00 Room Air* 0 21 Physical Exam SKIN: [NL ] HEENT: [NL] NECK: [NL] CARDIAC: [RRR] PULMONARY: [CTA] ABDOMEN: [SOFT,NT,NO REBOUND] PELVIC-NO VAG BLEEDING NOTED,UTERUS 10WKS SIZE Labs/Diagnostic Data Labs Test 01/08/25 07:40 01/08/25 04:33 01/08/25 02:55 01/07/25 22:36 Range/Units Urine Color Yellow Yellow Urine Clarity Clear Clear Urine pH 5.5 5.0-9.0 Urine Specific [place] 1.023 1.001-1.035 Urine Protein Negative Negative Urine Ketones 4+ H Negative Urine Blood Negative Negative /uL Urine Nitrite Negative Negative Urine Bilirubin Negative Negative Urine Urobilinogen 2 H Negative mg/dL Urine Leukocyte Esterase Negative Negative /uL Urine RBC None seen 0 - 4 /hpf Urine Microscopic WBC 2 0-5 /HPF Urine Squamous Epithelial Cells Few <5 /hpf Urine Bacteria Few H None Seen /hpf Urine Glucose Normal Normal mg/dL Urine Opiates Screen Neg NEGATIVE Urine Fentanyl Screen Neg NEGATIVE Urine Barbiturates Screen Neg NEGATIVE Urine Phencyclidine Screen Neg NEGATIVE Urine Amphetamines Screen Neg NEGATIVE Urine Benzodiazepines Screen Neg NEGATIVE Urine Cocaine Screen Neg NEGATIVE Urine Cannabinoids Screen Neg NEGATIVE White Blood Count 7.3 4.4-10.8 10^3/uL Red Blood Count 4.44 4.0-5.20 10^6/uL Hemoglobin 13.1 12.2-16.2 g/dL Hematocrit 37.3 # 36.0-46.0 % Mean Corpuscular Volume 84.0 80.0-100.0 fL Mean Corpuscular Hemoglobin 29.4 28.0-32.0 pg Mean Corpuscular Hemoglobin Concent 35.0 32.0-36.0 g/dL Red Cell Distribution Width 13.2 11.8-14.3 % Platelet Count 242 140-450 10^3/uL Mean Platelet Volume 7.8 6.9-10.8 fL Neutrophils (%) (Auto) 88.6 H 37.0-80.0 % Lymphocytes (%) (Auto) 7.7 L 10.0-50.0 % Monocytes (%) (Auto) 3.4 0.0-12.0 % Eosinophils (%) (Auto) 0.0 0.0-7.0 % Basophils (%) (Auto) 0.3 0.0-2.0 % Neutrophils # (Auto) 6.5 1.6-8.6 10 ^3/uL Lymphocytes # (Auto) 0.6 0.4-5.4 10 ^3/uL Monocytes # (Auto) 0.3 0-1.3 10 ^3/uL Eosinophils # (Auto) 0 0-0.8 10 ^3/uL Basophils # (Auto) 0 0-0.2 10 ^3/uL Nucleated Red Blood Cells 0.0 % Sodium Level 140 136-145 mmol/L Potassium Level 4.2 3.5-5.1 mmol/L Chloride Level 109 H 98-107 mmol/L Carbon Dioxide Level 17 L 20-31 mmol/L Anion Gap 14 5-15 Blood Urea Nitrogen 8 L 9-23 mg/dL Creatinine 0.44 L 0.550-1.02 mg/dL Glomerular Filtration Rate Calc 138 >90 mL/min BUN/Creatinine Ratio 18.2 10.0-20.0 Serum Glucose 83 74-106 mg/dL Hemoglobin A1c 5.0 <5.7 % A1C Lactic Acid Level 0.9 0.4-2.0 mmol/L Calcium Level 8.2 L 8.7-10.4 mg/dL Phosphorus Level 3.5 2.4-5.1 mg/dL Magnesium Level 1.8 1.6-2.6 mg/dL Total Bilirubin 1.1 H 0.2-1.0 mg/dL Aspartate Amino Transferase (AST) 34 13-40 U/L Alanine Aminotransferase (ALT) 77 H 7-40 U/L Alkaline Phosphatase 55 46-116 U/L B-Type Natriuretic Peptide 8.64 0-100 pg/mL Total Protein 6.6 5.7-8.2 g/dL Albumin 4.2 3.2-4.8 g/dL Triglycerides Level 76 < 150 mg/dL Cholesterol Level 137 < 200 mg/dL LDL Cholesterol 82 < 100 mg/dL HDL Cholesterol 46 40-59 mg/dL Vitamin B12 Level 384 211-911 pg/mL Vitamin D 25-Hydroxy 7.7 L 30.0-100 ng/mL Thyroid Stimulating Hormone (TSH) 0.42 L 0.55-4.78 uIU/mL Troponin I High Sensitivity < 3 L </=34 ng/L Lipase 53 12-53 U/L Beta HCG, Quantitative 13103.4 H 1.5-4.2 mIU/mL Primary Diagnosis HYPEREMESIS GRAVIDUM,DEHYDRATION ABD PAIN R/O APPY PER SONO Plan SUPPORTIVE CARE AWAIT GEN SURG CONSULT Plan discussed with: Patient Visit Coding OBGYN Date of Service: Jan 08, 2025 Billing Provider: MARIPOSA LARRY DO APPEALS REFEREE Common Visit Codes: [id number] OBS CARE (HIGH) APPEALS REFEREE Consultation Codes: [id number] CONSULT <110MIN MARIPOSA LARRY DO Jan 08, 2025 16:13
--- NOTE | 2025-01-08 16:15 | DVHINCON2 ---
Date of service: Jan 08, 2025 History of Present Illness 24-year-old female currently 10 weeks complaining of two day history of substernal chest pain and right lower quadrant abdominal pain associated with nausea. Patient denies any fevers or chills. Past Medical History None Past Surgical History None Family History: FH: breast cancer GRANDMOTHER Family History Occasional alcohol and marijuana. However patient had stopped since being . Allergies: Coded Allergies: NO KNOWN ALLERGIES (Unverified , 12/31/24) Home Meds Active Scripts Nitrofurantoin Monohydrate Mac (Macrobid) 100 Mg Cap, 100 MG PO BID for 5 Days, #10 CAP Prov:FRANK LEE MD 12/31/24 Current Medications Current Medications Medications (Trade) Dose Ordered Sig/Manjula Route PRN Reason Start Time Stop Time Status Last Admin Ondansetron HCl (Zofran) 4 mg Q4HP PRN IV NAUSEA / VOMITING 01/08/25 03:00 01/08/25 12:48 Sodium Chloride 1,000 ml @ 60 mls/hr [id number] IV 01/08/25 03:00 01/08/25 05:10 Pyridoxine HCl (Vitamin B-6 Tablet) 100 mg DAILY PO 01/08/25 10:00 01/08/25 10:50 Ceftriaxone Sodium 50 ml @ 100 mls/hr DAILY@09 IV 01/09/25 09:00 01/08/25 15:54 DC Pantoprazole Sodium (Protonix) 40 mg BID IV 01/08/25 22:00 Piperacillin Sod/ Tazobactam Sod 100 ml @ 25 mls/hr Q8H IV 01/08/25 16:00 Vital Signs Vital Signs Date Time Temp Pulse Resp B/P (MAP) Pulse Ox O2 Delivery O2 Flow Rate FiO2 01/08/25 12:38 97.3 58 16 115/59 (77) 93 97.3 01/08/25 08:00 Room Air* 0 21 Physical Exam GEN: Age-appropriate female in no acute distress. Alert. HEENT: Normocephalic atraumatic. Moist mucous membranes. Anicteric sclerae. CV: RRR Respiratory: CTAB ABD: Minimal epigastric and and right lower quadrant tenderness to palpation without guarding or rebound. Nondistended. Right lower quadrant ultrasound: Tubular structure in the right lower quadrant that is slightly compressible suspicious for mild or early acute appendicitis. Labs/Diagnostic Data Labs Test 01/08/25 07:40 01/08/25 04:33 01/08/25 02:55 01/07/25 22:36 Range/Units Urine Color Yellow Yellow Urine Clarity Clear Clear Urine pH 5.5 5.0-9.0 Urine Specific [place] 1.023 1.001-1.035 Urine Protein Negative Negative Urine Ketones 4+ H Negative Urine Blood Negative Negative /uL Urine Nitrite Negative Negative Urine Bilirubin Negative Negative Urine Urobilinogen 2 H Negative mg/dL Urine Leukocyte Esterase Negative Negative /uL Urine RBC None seen 0 - 4 /hpf Urine Microscopic WBC 2 0-5 /HPF Urine Squamous Epithelial Cells Few <5 /hpf Urine Bacteria Few H None Seen /hpf Urine Glucose Normal Normal mg/dL Urine Opiates Screen Neg NEGATIVE Urine Fentanyl Screen Neg NEGATIVE Urine Barbiturates Screen Neg NEGATIVE Urine Phencyclidine Screen Neg NEGATIVE Urine Amphetamines Screen Neg NEGATIVE Urine Benzodiazepines Screen Neg NEGATIVE Urine Cocaine Screen Neg NEGATIVE Urine Cannabinoids Screen Neg NEGATIVE White Blood Count 7.3 4.4-10.8 10^3/uL Red Blood Count 4.44 4.0-5.20 10^6/uL Hemoglobin 13.1 12.2-16.2 g/dL Hematocrit 37.3 # 36.0-46.0 % Mean Corpuscular Volume 84.0 80.0-100.0 fL Mean Corpuscular Hemoglobin 29.4 28.0-32.0 pg Mean Corpuscular Hemoglobin Concent 35.0 32.0-36.0 g/dL Red Cell Distribution Width 13.2 11.8-14.3 % Platelet Count 242 140-450 10^3/uL Mean Platelet Volume 7.8 6.9-10.8 fL Neutrophils (%) (Auto) 88.6 H 37.0-80.0 % Lymphocytes (%) (Auto) 7.7 L 10.0-50.0 % Monocytes (%) (Auto) 3.4 0.0-12.0 % Eosinophils (%) (Auto) 0.0 0.0-7.0 % Basophils (%) (Auto) 0.3 0.0-2.0 % Neutrophils # (Auto) 6.5 1.6-8.6 10 ^3/uL Lymphocytes # (Auto) 0.6 0.4-5.4 10 ^3/uL Monocytes # (Auto) 0.3 0-1.3 10 ^3/uL Eosinophils # (Auto) 0 0-0.8 10 ^3/uL Basophils # (Auto) 0 0-0.2 10 ^3/uL Nucleated Red Blood Cells 0.0 % Sodium Level 140 136-145 mmol/L Potassium Level 4.2 3.5-5.1 mmol/L Chloride Level 109 H 98-107 mmol/L Carbon Dioxide Level 17 L 20-31 mmol/L Anion Gap 14 5-15 Blood Urea Nitrogen 8 L 9-23 mg/dL Creatinine 0.44 L 0.550-1.02 mg/dL Glomerular Filtration Rate Calc 138 >90 mL/min BUN/Creatinine Ratio 18.2 10.0-20.0 Serum Glucose 83 74-106 mg/dL Hemoglobin A1c 5.0 <5.7 % A1C Lactic Acid Level 0.9 0.4-2.0 mmol/L Calcium Level 8.2 L 8.7-10.4 mg/dL Phosphorus Level 3.5 2.4-5.1 mg/dL Magnesium Level 1.8 1.6-2.6 mg/dL Total Bilirubin 1.1 H 0.2-1.0 mg/dL Aspartate Amino Transferase (AST) 34 13-40 U/L Alanine Aminotransferase (ALT) 77 H 7-40 U/L Alkaline Phosphatase 55 46-116 U/L B-Type Natriuretic Peptide 8.64 0-100 pg/mL Total Protein 6.6 5.7-8.2 g/dL Albumin 4.2 3.2-4.8 g/dL Triglycerides Level 76 < 150 mg/dL Cholesterol Level 137 < 200 mg/dL LDL Cholesterol 82 < 100 mg/dL HDL Cholesterol 46 40-59 mg/dL Vitamin B12 Level 384 211-911 pg/mL Vitamin D 25-Hydroxy 7.7 L 30.0-100 ng/mL Thyroid Stimulating Hormone (TSH) 0.42 L 0.55-4.78 uIU/mL Troponin I High Sensitivity < 3 L </=34 ng/L Lipase 53 12-53 U/L Beta HCG, Quantitative 59871.4 H 1.5-4.2 mIU/mL Assessment 1. Abdominal pain possibly from an early acute appendicitis but clinically stabl e. Plan/Recommendation 1. Due to her being in 1st trimester, the risk to the fetus is elevated with the surgery. I recommend continuing with conservative treatment with IV antibiotics as the patient is clinically stable. We will start clear liquid diet. Plan discussed with: Patient SULEMA MARCUS MD Jan 08, 2025 16:15
[2025-01-08] MEDS: PANTOPRAZOLE 40 MG/10 ML VIAL INJ IV SCH (22:01)
[2025-01-08] MEDS: ACETAMINOPHEN 325 MG TAB PO PRN (22:34)
[2025-01-09] VITALS (8 sets, daily range): BP systolic 99–144; BP diastolic 60–71; PULSE 76–96; RESP 14–20; TEMP 97.2–98.3; O2SAT 97–98
[2025-01-09] MEDS: MELATONIN 5 MG TAB PO ONE (01:07)
--- NOTE | 2025-01-09 10:47 | DVHPN2 ---
Reviewed: Care Plan, H&P, Labs, Medications, Previous Orders, Radiology Changes from previous H/P or p: No Changes Objective Vitals Vital Signs Date Time Temp Pulse Resp B/P (MAP) Pulse Ox O2 Delivery O2 Flow Rate FiO2 01/09/25 08:57 97.4 91 14 118/71 (87) 97 97.4 01/09/25 07:40 Room Air* 0 21 Intake/Output Intake and Output 01/09/25 07:00 Intake Total 2000 ml Balance 2000 ml Intake Oral 800 ml IV Total 1200 ml # Voids 2 Medications Current Medications Medications Dose Ordered Sig/Manjula Route Start Time Stop Time Status Last Admin Dose Admin Ondansetron HCl 4 mg Q4HP PRN IV 01/08/25 03:00 01/09/25 06:53 4 MG Sodium Chloride 1,000 ml @ 60 mls/hr [id number] IV 01/08/25 03:00 01/09/25 05:18 60 MLS/HR Pyridoxine HCl 100 mg DAILY PO 01/08/25 10:00 01/09/25 09:17 100 MG Pantoprazole Sodium 40 mg BID IV 01/08/25 22:00 01/09/25 09:17 40 MG Piperacillin Sod/ Tazobactam Sod 100 ml @ 25 mls/hr Q8H IV 01/08/25 16:00 01/09/25 09:17 25 MLS/HR Acetaminophen 650 mg Q6HP PRN PO 01/08/25 20:30 01/08/25 22:34 650 MG Laboratory Results Laboratory Tests 01/08/25 04:33 Urinalysis Test 01/08/25 07:40 Urine Color Yellow (Yellow) Urine Clarity Clear (Clear) Urine pH 5.5 (5.0-9.0) Urine Specific [place] 1.023 (1.001-1.035) Urine Protein Negative (Negative) Urine Ketones 4+ (Negative) H Urine Blood Negative /uL (Negative) Urine Nitrite Negative (Negative) Urine Bilirubin Negative (Negative) Urine Urobilinogen 2 mg/dL (Negative) H Urine Leukocyte Esterase Negative /uL (Negative) Urine RBC None seen /hpf (0 - 4) Urine Microscopic WBC 2 /HPF (0-5) Urine Squamous Epithelial Cells Few /hpf (<5) Urine Bacteria Few /hpf (None Seen) H Urine Glucose Normal mg/dL (Normal) Labs and/or images reviewed: Labs reviewed by me, Image(s) reviewed by me Assessment/Plan Assessment/Plan Hyperemesis gravidarum consult for anesthesiologist and critical care Dr. Del Cid appreciated Intrauterine (10 weeks of gestation) Acute Dehydration : IV fluids Possible early acute appendicitis: Consult for surgeon appreciated, in view of the first-trimester advised conservative management with the IV Domisyn HARDY Zhang at bedside Plan discussed with: Patient My Orders Orders - TRISTIN ALEXANDER MD Procedure Category Date Status Time * Scarfer Operator Consultation CONS 01/08/25 Transmitted 13:50 * Surgical Consult CONS 01/08/25 Transmitted Npo Except Ice Chips THERESA 01/08/25 In Process 14:21 Pantoprazole PHA 01/08/25 In Process (Protonix) 22:00 Date of Service: Jan 09, 2025 Billing Provider: TRISTIN ALEXANDER MD Common Visit Codes: [id number] INP/OBS CARE(HIGH) TRISTIN ALEXANDER MD Jan 09, 2025 10:47
--- NOTE | 2025-01-09 14:46 | DVHPN2 ---
Progress Note - Dictate Date Seen: Jan 09, 2025 Medical Necessity Reason Pt with a Central, PICC or Fol: No Subjective E: no major events o/n. no complaints. lonnie clear liquid diet. vital signs Vital Sign Date Time Temp Pulse Resp B/P (MAP) Pulse Ox O2 Delivery O2 Flow Rate FiO2 01/09/25 12:40 98.3 96 18 99/60 (73) 98 98.3 01/09/25 07:40 Room Air* 0 21 Total Intake and Output 01/08/25 01/08/25 01/09/25 15:00 23:00 07:00 Intake Total 100 ml 1900 ml Balance 100 ml 1900 ml medications Current Medications Medications Dose Ordered Sig/Manjula Route Start Time Stop Time Status Last Admin Dose Admin Ondansetron HCl 4 mg Q4HP PRN IV 01/08/25 03:00 01/09/25 06:53 4 MG Sodium Chloride 1,000 ml @ 60 mls/hr [id number] IV 01/08/25 03:00 01/09/25 05:18 60 MLS/HR Pyridoxine HCl 100 mg DAILY PO 01/08/25 10:00 01/09/25 09:17 100 MG Pantoprazole Sodium 40 mg BID IV 01/08/25 22:00 01/09/25 09:17 40 MG Piperacillin Sod/ Tazobactam Sod 100 ml @ 25 mls/hr Q8H IV 01/08/25 16:00 01/09/25 09:17 25 MLS/HR Acetaminophen 650 mg Q6HP PRN PO 01/08/25 20:30 01/08/25 22:34 650 MG objective GEN: NAD ABD: soft. min lower quadrant TTP w/o guarding or rebound. improved. laboratory and microbiology Laboratory Tests 01/08/25 04:33 Test 01/08/25 04:33 Range/Units Serum Glucose 83 74-106 mg/dL Assessment/Plan A 1. Abdominal pain possibly from an early acute appendicitis but clinically stable. P: 1. stable from surgery POV. no surgery at this time. If discharged, recommend oral abx for next 3-5 days. Plan discussed with: Patient SULEMA MARCUS MD Jan 09, 2025 14:46
--- NOTE | 2025-01-09 19:24 | DVHPN2 ---
Chief Complaints Patient reports: No new complaints, Feels better Nursing reports: No new complaints Objective Vitals Vital Signs Date Time Temp Pulse Resp B/P (MAP) Pulse Ox O2 Delivery O2 Flow Rate FiO2 01/09/25 16:53 98.1 88 16 105/66 (79) 98 98.1 01/09/25 07:40 Room Air* 0 21 Medications Current Medications Medications (Trade) Dose Ordered Sig/Manjula Route PRN Reason Start Time Stop Time Status Last Admin Acetaminophen (Tylenol Tablet) 650 mg Q6HP PRN PO MODERATE PAIN (4-6 PAIN SCALE) 01/08/25 20:30 01/09/25 15:04 Pantoprazole Sodium (Protonix) 40 mg BID IV 01/08/25 22:00 01/09/25 09:17 Neck: Normal Lungs: Normal Abdominal: Soft Extremities: Normal Studies Laboratory Tests 01/08/25 04:33 Test 01/08/25 04:33 Range/Units Serum Glucose 83 74-106 mg/dL Ass/Plan Assessment hyperemesis /dehydration improved Plan fu outpt with ob Visit Coding OBGYN Date of Service: Jan 09, 2025 Billing Provider: MARIPOSA LARRY DO [employer] Common Visit Codes: [id number] INP/OBS CARE(HIGH) MARIPOSA LARRY DO Jan 09, 2025 19:24
[2025-01-10 01:00] VITALS: BP 93/53; PULSE 75; RESP 19; TEMP 97.7; O2SAT 98
[2025-01-10 05:00] VITALS: BP 107/54; PULSE 85; RESP 17; TEMP 97.8; O2SAT 95
[2025-01-10 08:00] VITALS: PULSE 79
[2025-01-10 09:30] VITALS: BP 104/59; PULSE 71; RESP 18; TEMP 97.4; O2SAT 99
[2025-01-10] MEDS ORDERED: ZOFR4T PO ×2 (11:48)
[2025-01-10] MEDS ORDERED: CEPH500C PO ×2 (11:48)
[2025-01-10] MEDS ORDERED: PANT40T PO ×2 (11:48)
--- NOTE | 2025-01-10 11:49 | DVHPN2 ---
Reviewed: Care Plan, H&P, Labs, Medications, Previous Orders, Radiology Changes from previous H/P or p: No Changes Objective Vitals Vital Signs Date Time Temp Pulse Resp B/P (MAP) Pulse Ox O2 Delivery O2 Flow Rate FiO2 01/10/25 09:30 97.4 71 18 104/59 (74) 99 97.4 01/10/25 08:00 Room Air* 0 21 Intake/Output Intake and Output 01/10/25 07:00 Intake Total 2018 ml Balance 2018 ml Intake Oral 1118 ml IV Total 900 ml # Voids 12 Medications Current Medications Medications Dose Ordered Sig/Manjula Route Start Time Stop Time Status Last Admin Dose Admin Ondansetron HCl 4 mg Q4HP PRN IV 01/08/25 03:00 01/10/25 06:49 4 MG Sodium Chloride 1,000 ml @ 60 mls/hr [id number] IV 01/08/25 03:00 01/10/25 08:32 60 MLS/HR Pyridoxine HCl 100 mg DAILY PO 01/08/25 10:00 01/10/25 08:18 100 MG Pantoprazole Sodium 40 mg BID IV 01/08/25 22:00 01/10/25 08:17 40 MG Piperacillin Sod/ Tazobactam Sod 100 ml @ 25 mls/hr Q8H IV 01/08/25 16:00 01/10/25 08:31 25 MLS/HR Acetaminophen 650 mg Q6HP PRN PO 01/08/25 20:30 01/10/25 06:49 650 MG Laboratory Results Laboratory Tests 01/08/25 04:33 Urinalysis Test 01/08/25 07:40 Urine Color Yellow (Yellow) Urine Clarity Clear (Clear) Urine pH 5.5 (5.0-9.0) Urine Specific [place] 1.023 (1.001-1.035) Urine Protein Negative (Negative) Urine Ketones 4+ (Negative) H Urine Blood Negative /uL (Negative) Urine Nitrite Negative (Negative) Urine Bilirubin Negative (Negative) Urine Urobilinogen 2 mg/dL (Negative) H Urine Leukocyte Esterase Negative /uL (Negative) Urine RBC None seen /hpf (0 - 4) Urine Microscopic WBC 2 /HPF (0-5) Urine Squamous Epithelial Cells Few /hpf (<5) Urine Bacteria Few /hpf (None Seen) H Urine Glucose Normal mg/dL (Normal) Labs and/or images reviewed: Labs reviewed by me, Image(s) reviewed by me Assessment/Plan Assessment/Plan Hyperemesis gravidarum consult for director product safety Dr. Del Cid appreciated Intrauterine (10 weeks of gestation) Acute Dehydration : IV fluids Possible early acute appendicitis: Consult for surgeon appreciated, in view of the first-trimester advised conservative management with the IV Zosyn advised outpatient oral antibiotics HARDY Zhang at bedside OBGYN and surgeon cleared for discharge Feels better and wants to go home Plan discussed with: Patient Date of Service: Jan 10, 2025 Billing Provider: TRISTIN ALEXANDER MD Common Visit Codes: [id number] INP/OBS CARE(HIGH) TRISTIN ALEXANDER MD Jan 10, 2025 11:49
--- NOTE | 2025-01-10 11:57 | DVHDS2 ---
Discharge Summary Date of Admission Jan 08, 2025 at 02:52 Date of Discharge: Jan 10, 2025 Admitting Diagnosis Nausea and vomiting in early Wounds: None Labs/Diagnostic Data: Laboratory Results Test 01/08/25 07:40 01/08/25 04:33 01/08/25 02:55 01/07/25 22:36 Urine Color Yellow (Yellow) Urine Clarity Clear (Clear) Urine pH 5.5 (5.0-9.0) Urine Specific [place] 1.023 (1.001-1.035) Urine Protein Negative (Negative) Urine Ketones 4+ (Negative) Urine Blood Negative /uL (Negative) Urine Nitrite Negative (Negative) Urine Bilirubin Negative (Negative) Urine Urobilinogen 2 mg/dL (Negative) Urine Leukocyte Esterase Negative /uL (Negative) Urine RBC None seen /hpf (0 - 4) Urine Microscopic WBC 2 /HPF (0-5) Urine Squamous Epithelial Cells Few /hpf (<5) Urine Bacteria Few /hpf (None Seen) Urine Glucose Normal mg/dL (Normal) Urine Opiates Screen Neg (NEGATIVE) Urine Fentanyl Screen Neg (NEGATIVE) Urine Barbiturates Screen Neg (NEGATIVE) Urine Phencyclidine Screen Neg (NEGATIVE) Urine Amphetamines Screen Neg (NEGATIVE) Urine Benzodiazepines Screen Neg (NEGATIVE) Urine Cocaine Screen Neg (NEGATIVE) Urine Cannabinoids Screen Neg (NEGATIVE) White Blood Count 7.3 10^3/uL (4.4-10.8) Red Blood Count 4.44 10^6/uL (4.0-5.20) Hemoglobin 13.1 g/dL (12.2-16.2) Hematocrit 37.3 % (36.0-46.0) Mean Corpuscular Volume 84.0 fL (80.0-100.0) Mean Corpuscular Hemoglobin 29.4 pg (28.0-32.0) Mean Corpuscular Hemoglobin Concent 35.0 g/dL (32.0-36.0) Red Cell Distribution Width 13.2 % (11.8-14.3) Platelet Count 242 10^3/uL (140-450) Mean Platelet Volume 7.8 fL (6.9-10.8) Neutrophils (%) (Auto) 88.6 % (37.0-80.0) Lymphocytes (%) (Auto) 7.7 % (10.0-50.0) Monocytes (%) (Auto) 3.4 % (0.0-12.0) Eosinophils (%) (Auto) 0.0 % (0.0-7.0) Basophils (%) (Auto) 0.3 % (0.0-2.0) Neutrophils # (Auto) 6.5 10 ^3/uL (1.6-8.6) Lymphocytes # (Auto) 0.6 10 ^3/uL (0.4-5.4) Monocytes # (Auto) 0.3 10 ^3/uL (0-1.3) Eosinophils # (Auto) 0 10 ^3/uL (0-0.8) Basophils # (Auto) 0 10 ^3/uL (0-0.2) Nucleated Red Blood Cells 0.0 % Sodium Level 140 mmol/L (136-145) Potassium Level 4.2 mmol/L (3.5-5.1) Chloride Level 109 mmol/L (98-107) Carbon Dioxide Level 17 mmol/L (20-31) Anion Gap 14 (5-15) Blood Urea Nitrogen 8 mg/dL (9-23) Creatinine 0.44 mg/dL (0.550-1.02) Glomerular Filtration Rate Calc 138 mL/min (>90) BUN/Creatinine Ratio 18.2 (10.0-20.0) Serum Glucose 83 mg/dL (74-106) Hemoglobin A1c 5.0 % A1C (<5.7) Lactic Acid Level 0.9 mmol/L (0.4-2.0) Calcium Level 8.2 mg/dL (8.7-10.4) Phosphorus Level 3.5 mg/dL (2.4-5.1) Magnesium Level 1.8 mg/dL (1.6-2.6) Total Bilirubin 1.1 mg/dL (0.2-1.0) Aspartate Amino Transferase (AST) 34 U/L (13-40) Alanine Aminotransferase (ALT) 77 U/L (7-40) Alkaline Phosphatase 55 U/L (46-116) B-Type Natriuretic Peptide 8.64 pg/mL (0-100) Total Protein 6.6 g/dL (5.7-8.2) Albumin 4.2 g/dL (3.2-4.8) Triglycerides Level 76 mg/dL (< 150) Cholesterol Level 137 mg/dL (< 200) LDL Cholesterol 82 mg/dL (< 100) HDL Cholesterol 46 mg/dL (40-59) Vitamin B12 Level 384 pg/mL (211-911) Vitamin D 25-Hydroxy 7.7 ng/mL (30.0-100) Thyroid Stimulating Hormone (TSH) 0.42 uIU/mL (0.55-4.78) Troponin I High Sensitivity < 3 ng/L (</=34) Lipase 53 U/L (12-53) Beta HCG, Quantitative 68818.4 mIU/mL (1.5-4.2) Other Laboratory Tests 01/08/25 04:33 Brief Hx & Hospital Course: 24-year-old female 10 weeks came in for nausea and vomiting found to be in hyperemesis gravidarum. Treated symptomatically with the IV fluids and Zofran. Abdominal ultrasound possible early appendicitis seen by surgeon Dr. Cedeno treated conservatively secondary to early and high risk for any surgery placed on Zosyn. Also seen by OBGYN Dr. Moon. Patient feels better with a less nausea and less abdominal pain. Cleared for discharge by surgeon and OBGYN Consults/Reason for consult OBGYN Dr. moon Surgeon Dr. Cedeno Operations or Procedures Pelvic ultrasound Right lower quadrant ultrasound Condition at Discharge: Fair Final Diagnosis/Problems List Hyperemesis gravidarum consult for collar baster Dr. Del Cid appreciated Intrauterine (10 weeks of gestation) Acute Dehydration : IV fluids Possible early acute appendicitis: Consult for surgeon appreciated, in view of the first-trimester advised conservative management with the IV Zosyn advised outpatient oral antibiotics HARDY Zhang at [facility] Discharge Disposition: Home Discharge Instruct/Medications Diet: Regular Activity: Light activity Follow Up/Referral: Follow up with OBGYN Dr. Moon in one week Follow up with surgeon Dr. Cedeno in one week Use medications as prescribed Go to the nearest ER if symptoms worsen Medications: Keflex Zofran Pantoprazole [facility] Scheduled Cephalexin Monohydrate (Cephalexin), 1 CAP PO QID Nitrofurantoin Monohydrate Mac (Macrobid), 100 MG PO BID Pantoprazole Sodium Sesquihydr (Pantoprazole Sodium), 40 MG PO DAILY Scheduled PRN Ondansetron Odt 4MG Tab (Zofran Po), 4 MG PO QID PRN 39 (Time taken for discharge summary 39 minutes) Discharge Statement: "Patient was advised to return to the ER or call 911 if any headaches, dizziness, shortness of breath, chest pain, abdominal pain, bleeding, fevers, or worsening of medical condition. Patient was counseled about treatment plan, medications, possible side effects, patientverbalized understanding. All questions were answered to the best of my ability. This discharge took greater then 30 minutes in planning, reviewing documentation, counseling the patient, and discussing with other team members." ASSESSMENT ASSESSMENT Hospital Course Significantly improved Assessment Hyperemesis gravidarum consult for collar baster Dr. Del Cid appreciated Intrauterine (10 weeks of gestation) Acute Dehydration : IV fluids Possible early acute appendicitis: Consult for surgeon appreciated, in view of the first-trimester advised conservative management with the IV Zosyn advised outpatient oral antibiotics HARDY Zhang at [facility] Date of Service: Jan 10, 2025 Billing Provider: TRISTIN ALEXANDER MD Common Visit Codes: [id number] DISCH DAY >30min TRISTIN ALEXANDER MD Jan 10, 2025 11:57
[2025-01-10 13:27] VITALS: BP 108/59; PULSE 95; RESP 18; TEMP 97.4; O2SAT 96
== END 2025-01-10 13:43 | disposition home or self-care (01) | DRG 566 ==
LOC: ER 21:36 → OVERFLOW 01-08 02:52 → TELE-WESTW 01-08 06:56
PROVIDERS: ADMIT Family Medicine; ATTEND Family Medicine
DX: O21.1 Hyperemesis gravidarum with metabolic disturbance (principal); K35.80 Unspecified acute appendicitis; E86.0 Dehydration; O99.611 Diseases of the digestive system complicating pregnancy, first trimester; Z3A.10 10 weeks gestation of pregnancy; Z80.3 Family history of malignant neoplasm of breast
CPT/HCPCS: 36415; 76705; 76801; 80048; 80053; 80061; 80307; 81001; 82306; 82607; 83036; 83605; 83690; 83735; 83880; 84100; 84443; 84484; 84702; 85025; 93005; 93306; 96360; G0378; J2405; J2470; J2543; J3490